=== PATIENT | female | born 1975 | race Caucasian/White ===

== ENCOUNTER 2017-01-30 21:07 | Emergency (ER) | payer BC ==
[~2017-01-30] VITALS: Ht 154.9 cm; Wt 86.6 kg
[~2017-01-30 21:07] MED LIST: FLAGYL500 MG PO; LAC PO; LISINOPRIL2.5 MG PO; LOP50 PO; ZOF4 PO
[2017-01-30 23:16] LABS: CALCIUM 8.5 mg/dL (8.5-10.1); CARBON DIOXIDE 26.3 mmol/L (21-32); CHLORIDE SERUM 105 mmol/L (98-107); CREATININE SERUM 0.8 mg/dL (0.6-1.0); GFR1 > 60 mL/min; GLUCOSE SERUM 107 mg/dL (74-106); MAGNESIUM 1.8 mg/dL (1.8-2.4); POTASSIUM SERUM 3.4 mmol/L (3.5-5.1); SODIUM SERUM 141 mmol/L (136-145)
[2017-01-30 23:40] VITALS: BP 155/78
== END 2017-01-30 23:40 | disposition home or self-care (01) ==
LOC: ED 21:07
PROVIDERS: Emergency Medicine
DX: R25.2 Cramp and spasm (principal); M79.652 Pain in left thigh; M79.651 Pain in right thigh; I10 Essential (primary) hypertension; Z88.5 Allergy status to narcotic agent; Z88.8 Allergy status to other drugs, medicaments and biological substances
CPT/HCPCS: J1885

== ENCOUNTER 2017-06-13 21:44 | Emergency (ER) | payer BC ==
[2017-06-14 03:15] VITALS: BP 132/78
== END 2017-06-14 03:15 | disposition home or self-care (01) ==
LOC: ED 21:44
DX: S86.911A Strain of unspecified muscle(s) and tendon(s) at lower leg level, right leg, initial encounter (principal); I10 Essential (primary) hypertension; Z88.5 Allergy status to narcotic agent; X58.XXXA Exposure to other specified factors, initial encounter; Y93.89 Activity, other specified; Y99.8 Other external cause status; Y92.89 Other specified places as the place of occurrence of the external cause
CPT/HCPCS: 85378; Q0092

== ENCOUNTER 2017-09-14 23:16 | Emergency (ER) | payer BC ==
[2017-09-15 00:27] LABS: UA SPECIFIC GRAVITY <=1.005 (1.005-1.035); microscopic required? YES; urine erythrocyte TRACE (NEGATIVE)
[2017-09-15 01:23] VITALS: BP 126/87
== END 2017-09-15 01:23 | disposition home or self-care (01) ==
LOC: ED 23:16
PROVIDERS: Emergency Medicine
DX: R31.9 Hematuria, unspecified (principal); I10 Essential (primary) hypertension; Z88.5 Allergy status to narcotic agent
CPT/HCPCS: 87491; 87591; J1885

== ENCOUNTER 2017-11-08 18:59 | Emergency (ER) | payer BC ==
[~2017-11-08] VITALS: Ht 154.9 cm; Wt 87.5 kg
[2017-11-08 19:12] VITALS: Ht 154.9 cm; Wt 87.5 kg
[2017-11-08 21:45] LABS: BASOPHIL % 1.3 % (0-2); PLATELET COUNT 288 x10^3mcL (130-400); RED CELL DISTRIBUTION WIDTH 13.8 % (11.5-14.5)
[2017-11-08 21:54] LABS: CALCIUM 8.8 mg/dL (8.5-10.1); CARBON DIOXIDE 22.8 mmol/L (21-32); CHLORIDE SERUM 104 mmol/L (98-107); CREATININE SERUM 0.8 mg/dL (0.6-1.0); GFR1 > 60 mL/min; GLUCOSE SERUM 106 mg/dL (74-106); POTASSIUM SERUM 3.5 mmol/L (3.5-5.1); SODIUM SERUM 139 mmol/L (136-145)
[2017-11-09 01:13] VITALS: BP 106/74
== END 2017-11-09 01:13 | disposition home or self-care (01) ==
LOC: ED 18:59
PROVIDERS: Emergency Medicine
DX: R07.89 Other chest pain (principal); R05 Cough; R63.0 Anorexia; I10 Essential (primary) hypertension; Z88.8 Allergy status to other drugs, medicaments and biological substances
CPT/HCPCS: 36415; 84439; 85378; Q9967

== ENCOUNTER 2019-03-11 15:06 | Inpatient (IN) | payer BC ==
[~2019-03-11] VITALS: Ht 162.6 cm; Wt 83.0 kg
--- NOTE | 2019-03-11 15:13 | NUR ---
EKG IN PROGRESS
--- NOTE | 2019-03-11 15:35 | NUR ---
PT TO BATHROOM INST TO PROVIDE URINE SAMPLE
--- NOTE | 2019-03-11 15:42 | NUR ---
PT BACK TO ROOM WITH NO INCIDENT
--- NOTE | 2019-03-11 15:51 | NUR ---
PT MEDICATED PER ORDER, PT VERBALIZED UNDERSTANDING OF MEDICATION PRIOR TO ADMINISTRATION.
[2019-03-11 15:54] LABS: BASOPHIL % 0.3 % (0-2); PLATELET COUNT 233 x10^3mcL (130-400); RED CELL DISTRIBUTION WIDTH 13.2 % (11.5-14.5)
[2019-03-11 16:11] LABS: CALCIUM 8.7 mg/dL (8.5-10.1); CARBON DIOXIDE 25.3 mmol/L (21-32); CHLORIDE SERUM 104 mmol/L (98-107); CREATININE SERUM 0.8 mg/dL (0.6-1.0); FREE T4 1.05 ng/dL (0.76-1.46); GFR1 > 60 mL/min; GLUCOSE SERUM 121 mg/dL (74-106); POTASSIUM SERUM 3.4 mmol/L (3.5-5.1); SODIUM SERUM 138 mmol/L (136-145)
[2019-03-11 16:30] LABS: AMPHETAMINE QUAL UR NONE DETECTED (See below)
[2019-03-11 16:40] LABS: BILIRUBIN TOTAL 0.43 mg/dL (0.20-1.00); TOTAL PROTEIN, SERUM 7.7 g/dL (6.4-8.2)
[2019-03-11 17:02] LABS: ALKALINE PHOSPHATASE 68 U/L (46-116); ALT/SGPT 26 U/L (14-59); AST/SGOT 19 U/L (15-37)
[2019-03-11 17:04] LABS: ALBUMIN 3.3 g/dL (3.4-5.0)
--- NOTE | 2019-03-11 17:05 | NUR ---
PT TO CT
--- NOTE | 2019-03-11 17:17 | NUR ---
PT BACK FROM CT WITHOUT ANY INCIDENT
--- NOTE | 2019-03-11 17:38 | NUR ---
PT THIRSTY. WATER GIVEN OK PER DR BUSH
--- NOTE | 2019-03-11 17:53 | NUR ---
NS BOLUS STARTED. INFUSING WITH NO PROBLEM ORDERED BY ER MD
--- NOTE | 2019-03-11 18:56 | NUR ---
PTS TEMPERATURE RECHECKED RECTALLY PER DR BUSH ORDERS. PT MEDICATED PER PROTOCOL WITH TYLENOL 1GM PO. DR BUSH AT BEDSIDE DISCUSSING POC WITH PT
--- NOTE | 2019-03-11 18:57 | NUR ---
LAB CALLED AND MADE AWARE TO ADD URINE CULTURE AND URINALYSIS FROM URINE COLLECTED EARLIER
[2019-03-11 19:04] LABS: UA SPECIFIC GRAVITY <=1.005 (1.005-1.035); microscopic required? YES; urine erythrocyte 1+ (NEGATIVE)
--- NOTE | 2019-03-11 19:04 | NUR ---
REPORT GIVEN TO KARAN LARA RESUMING CARE OF PT AT THIS TIME.
--- NOTE | 2019-03-11 19:06 | NUR ---
RECEIVED REPORT FROM MARY LARA, I WILL RESUME FURTHER CARE OF THIS PATIENT.
--- NOTE | 2019-03-11 19:26 | NUR ---
PT AMBULATED TO RESTROOM AND BACK WUITH A STEADY GAIT AND WITHOUT INCIDENT.
--- NOTE | 2019-03-11 19:30 | NUR ---
PT IN POSITION OF COMFORT, NO SIGNS OF DISTRESS, RESP E/U, AT BEDSIDE. PT ON FULL CM, SINUS TACHY, AWARE. BED IN LOWEST POSITION FOR SAFETY AND CALL DEXTER WITHIN REACH. WILL CONT TO MONITOR.
--- NOTE | 2019-03-11 20:15 | NUR ---
PT IN POSTION OF COMFORT LYING IN BED, PT IS AAOX4, NO SIGNS OF DISTRESS NOTED, RESP E/U. PT ON FULL CM, NSR, VSS. MADE AWARE. WILL CONT TO MONITOR.
--- NOTE | 2019-03-11 21:45 | NUR ---
GAVE REPORT TO NUVIA LARA ON TELE UNIT WHO WILL BE RESUMING FURTHER CARE OF THIS PATIENT.
--- NOTE | 2019-03-11 21:52 | NUR ---
RECEIVED PT FROM ED VIA AXEL, CAME IN DUE TO PALPITATIONS AFTER TAKING Z-PACK. AAOX4. DENIES HEADACHE/DIZZINESS. ABLE TO FOLLOW COMMANDS. NO SOB NOTED, W/ NON-PRODUCTIVE COUGH AND NASAL CONGESTION. DENIES CHEST PAIN/PRESSURE/PALPITATIONS AT THIS TIME. SINUS TACHYCARDIA ON THE MONITOR, HR AT 102. DENIES ABDOMINAL DISCOMFORT. VOIDS. IV SITE ON THE RAC IS PATENT AND INTACT. SIDE RAILS UPX2. CALL LIGHT ON REACH. ENDORSED TO PRIMARY NURSE NUVIA FOR CONTINUITY OF CARE
[2019-03-11 21:59] LABS: CHOLESTEROL/HDL RATIO 3.1; MAGNESIUM 1.7 mg/dL (1.8-2.4); PHOSPHOROUS 1.7 mg/dL (2.5-4.9)
[2019-03-11 22:02] VITALS: BP 118/82
[2019-03-11 22:06] VITALS: Ht 162.6 cm; Wt 83.0 kg
--- NOTE | 2019-03-12 01:00 | NUR ---
PT RESTING WITH EYES CLOSED. NO SOB ON ROOM AIR. NO DISTRESS NOTED. CALL LIGHT WITHIN REACH. WILL CONTINUE TO MONITOR.
[2019-03-12 06:11] VITALS: BP 141/85
[2019-03-12 06:37] LABS: PLATELET COUNT 213 x10^3mcL (130-400); RED CELL DISTRIBUTION WIDTH 13.5 % (11.5-14.5)
[2019-03-12 06:40] LABS: CALCIUM 8.5 mg/dL (8.5-10.1); CARBON DIOXIDE 22.9 mmol/L (21-32); CHLORIDE SERUM 108 mmol/L (98-107); CREATININE SERUM 0.6 mg/dL (0.6-1.0); GFR1 > 60 mL/min; GLUCOSE SERUM 101 mg/dL (74-106); MAGNESIUM 2.1 mg/dL (1.8-2.4); POTASSIUM SERUM 3.7 mmol/L (3.5-5.1); SODIUM SERUM 141 mmol/L (136-145)
--- NOTE | 2019-03-12 06:55 | NUR ---
PT SLEPT AT LONG INTERVALS THROUGHOUT SHIFT. NO SOB ON ROOM AIR. NO RESP DISTRESS. NO C/O CHEST PAIN. SAFETY MEASURES MAINTAINED. ALL NEEDS ATTENDED TO. CALL LIGHT WITHIN REACH. WILL ENDORSE CONTINUITY OF CARE TO DAY SHIFT RN.
--- NOTE | 2019-03-12 07:05 | NUR ---
RECIEVED PT RESTING IN BED WITH NO C/O PAIN, DISTRESS, OR SOB. A/O X4 DENIES GARCIA OR DIZZINESS. CONNECTED TO TELE MONITOR #25, ST ON MONITOR. DENIES ANY CP OR PRESSURE. LUNGS CTA BILAT. PT ON RA AND AMBULATORY. SKIN CDI. IV INTACT AND PATENT AT RAC 20 GUAGE WIH 100ML/HR NS RUNNING. NO REDNESS OR INFLAMMATION NOTED. SAFETY PRECAUTIONS IN PLACE. CALL LIGHT WITHIN REACH. WILL MONITOR.
[2019-03-12 09:42] VITALS: BP 115/77
--- NOTE | 2019-03-12 10:00 | NUR ---
PT STABLE WITH NO C/O PAIN, DISTRESS, OR SOB. AT BEDSIDE. SAFETY PRECAUTIONS IN PLACE. CALL LIGHT WITHIN REACH. WILL MONITOR.
[2019-03-12 11:25] LABS: BAND NEUTROPHIL 1 % (0-10); BASOPHIL 0 % (0-2); MONOCYTE 8 % (0-7); SEGMENTED NEUTROPHILS 89 % (37-75)
[2019-03-12 11:26] LABS: PLATELET MORPHOLOGY PLATELETS INCREASED; rbc morphology (normal/abnorm) ABNORMAL (NORMAL)
[2019-03-12] MEDS ORDERED: AUGMENTIN 875-1 EACH PO (12:55)
[2019-03-12] MEDS ORDERED: FLONS (12:56)
[2019-03-12] MEDS ORDERED: CLARITIN10 MG PO (12:58)
[2019-03-12 13:12] VITALS: BP 106/80
[2019-03-12 14:08] VITALS: BP 115/77
--- NOTE | 2019-03-12 14:42 | NUR ---
PT STABLE TO D/C. ALL CARES TOLERATED WELL. VS WNL. NO DISTRESS NOTED. IV REMOVED WITH CATHETER INTACT. NO REDNESS OR INFLAMMATION NOTED. DENIES CP OR PRESSURE. ALL D/C INSTRUCTIONS AND EDUCATION GIVEN TO PT. PT VERBALIZES UNDERSTANDING. ALL D/C FORMS SIGNED AND ID BANDS REMOVED. PT ESCORTED BY ERASMO VIA WC TO LOBBY WITH AT SIDE.
--- NOTE | 2019-03-12 20:04 | NUR ---
PT STABLE. REPORTS MO PAIN, DISTRESS, OR SOB. SAFETY PRECAUTIONS IN PLACE, CALL LIGHT WITHIN REACH, WILL MONITOR
== END 2019-03-12 14:42 | disposition home or self-care (01) | DRG 872 ==
LOC: ED 15:06 → DU 20:11
PROVIDERS: Emergency Medicine; ADMIT Internal Medicine
DX: A41.9 Sepsis, unspecified organism (principal); I10 Essential (primary) hypertension; R65.20 Severe sepsis without septic shock; E87.6 Hypokalemia; E83.39 Other disorders of phosphorus metabolism; E83.42 Hypomagnesemia; J32.9 Chronic sinusitis, unspecified; Z88.6 Allergy status to analgesic agent; Z82.49 Family history of ischemic heart disease and other diseases of the circulatory system; Z82.3 Family history of stroke; Z83.3 Family history of diabetes mellitus
CPT/HCPCS: 83880; 84439; 85378; 87804; J0696; J3490; J7030; Q9967